=== PATIENT | female | born 1990 | race Caucasian/White ===

== ENCOUNTER 2018-10-12 01:25 | Inpatient (IN) | payer MEDICAID ==
[2018-10-12] MEDS ORDERED: MISOPROSTOL 200 MCG TAB PR ×2 (02:30→15:00)
[2018-10-12] MEDS ORDERED: CARBOPROST 250 MCG INJ IM ×2 (02:30→15:00)
[2018-10-12] MEDS ORDERED: OXYTOCIN 30 UNITS/LR 500 ML IV ×3 (02:30→15:00)
[2018-10-12] MEDS ORDERED: IBUPROFEN 600 MG TAB PO (02:30)
[2018-10-12] MEDS ORDERED: LIDOCAINE 1% (MPF) 30 ML INJ INJ (02:30)
[2018-10-12] MEDS ORDERED: METHYLERGONOVINE 0.2 MG INJ IM ×2 (02:30→15:00)
[2018-10-12] MEDS: LACTATED RINGER'S 1,000 ML IV ×3 (03:02→08:44)
[2018-10-12 03:14] LABS: ADD MAN DIFF? NO
[2018-10-12 03:16] LABS: ABNORMAL IP MESSAGE 1; BASOPHILS % 0.2 % (0.0-2.0); EOSINOPHILS # 0.1 10^3/ul (0.0-0.5); EOSINOPHILS % 0.7 % (0.0-7.0); HEMOGLOBIN 13.9 g/dl (12.0-16.0); LYMPHOCYTES # 2.1 10^3/ul (0.8-2.9); LYMPHOCYTES % 20.9 % (15.0-51.0); MEAN CORPUSCULAR HEMOGLOBIN 30.1 pg (29.0-33.0); MEAN CORPUSCULAR HGB CONC 33.9 g/dl (32.0-37.0); MEAN CORPUSCULAR VOLUME 88.7 fl (82.0-101.0); MEAN PLATELET VOLUME 13.7 fl (7.4-10.4); MONOCYTE # 0.7 10^3/ul (0.3-0.9); MONOCYTES % 6.6 % (0.0-11.0); NEUTROPHIL # 7.1 10^3/ul (1.6-7.5); NEUTROPHILS % 71.1 % (39.0-77.0); PLATELET COUNT 129 10^3/UL (140-415); RED BLOOD COUNT 4.62 10^6/ul (4.20-5.40); RED CELL DISTRIBUTION WIDTH 14.1 % (11.5-14.5)
[2018-10-12 03:22] LABS: POSITIVE DIFF @See below
[2018-10-12 03:36] LABS: INR 0.84; PROTIME 11.6 Sec (11.9-14.9); PT RATIO 0.9
[2018-10-12 03:37] LABS: PARTIAL THROMBOPLASTIN TIME 27.7 Sec (23.0-35.0)
[2018-10-12] MEDS: OXYTOCIN 30 UNITS/LR 500 ML IV ×3 (03:52→19:00)
[2018-10-12 04:08] LABS: HEPATITIS B SURFACE ANTIGEN NEGATIVE (NEGATIVE)
[2018-10-12] MEDS: BUTORPHANOL 2 MG INJ IV (05:43)
[2018-10-12] MEDS ORDERED: FENTAnyl 2MCG/ML-ROPIV 0.2% 100 ML (08:08)
[2018-10-12] MEDS ORDERED: FENTAnyl 2MCG/ML-ROPIV 0.2% 100 ML BAG EPI (09:00)
[2018-10-12] MEDS ORDERED: ONDANSETRON 4 MG INJ IV (09:00)
[2018-10-12] MEDS ORDERED: DIPHENHYDRAMINE 50 MG INJ IV (09:00)
[2018-10-12] MEDS ORDERED: NALOXONE (0.4 MG/ML) INJ IV (09:00)
[2018-10-12] MEDS ORDERED: SENNA/DOCUSATE NA (8.6MG/50MG) TAB PO (15:00)
[2018-10-12] MEDS ORDERED: ZOLPIDEM 5 MG TAB PO (15:00)
[2018-10-12] MEDS ORDERED: NACL 0.9% 3 ML SYG IV (15:00)
[2018-10-12] MEDS ORDERED: OXYCODONE/ASPIRIN (4.88/325) TAB PO (15:00)
[2018-10-12] MEDS: LANOLIN 7 GM TUBE TOP (15:41)
[2018-10-12] MEDS: IBUPROFEN 600 MG TAB PO (17:47)
[2018-10-12 20:51] LABS: RAPID PLASMA REAGIN NONREACTIVE (NR)
[2018-10-12] MEDS: WITCH HAZEL/GLYCERIN PAD PR (21:25)
[2018-10-12] MEDS: SENNA/DOCUSATE NA (8.6MG/50MG) TAB PO (21:25)
[2018-10-13] MEDS: IBUPROFEN 600 MG TAB PO ×5 (00:11→23:48)
[2018-10-13 08:07] LABS: ADD MAN DIFF? NO
[2018-10-13 08:09] LABS: ABNORMAL IP MESSAGE 1; BASOPHILS % 0.3 % (0.0-2.0); EOSINOPHILS # 0.1 10^3/ul (0.0-0.5); EOSINOPHILS % 1.3 % (0.0-7.0); HEMATOCRIT 41.8 % (37.0-47.0); HEMOGLOBIN 13.7 g/dl (12.0-16.0); LYMPHOCYTES # 2.4 10^3/ul (0.8-2.9); LYMPHOCYTES % 26.6 % (15.0-51.0); MEAN CORPUSCULAR HEMOGLOBIN 29.7 pg (29.0-33.0); MEAN CORPUSCULAR HGB CONC 32.8 g/dl (32.0-37.0); MEAN CORPUSCULAR VOLUME 90.7 fl (82.0-101.0); MONOCYTE # 0.6 10^3/ul (0.3-0.9); MONOCYTES % 6.8 % (0.0-11.0); NEUTROPHIL # 5.8 10^3/ul (1.6-7.5); NEUTROPHILS % 64.6 % (39.0-77.0); PLATELET COUNT 119 10^3/UL (140-415); RED BLOOD COUNT 4.61 10^6/ul (4.20-5.40); RED CELL DISTRIBUTION WIDTH 14.7 % (11.5-14.5)
[2018-10-13 08:11] LABS: POSITIVE DIFF @See below
[2018-10-13] MEDS: SENNA/DOCUSATE NA (8.6MG/50MG) TAB PO ×2 (08:48→21:31)
[2018-10-13 10:46] LABS: RUBELLA ANTIBODY - IGM <20.00 AU/mL
[2018-10-13 11:33] LABS: RUBELLA ANTIBODY - IGG 5.92 index
[2018-10-14] MEDS: IBUPROFEN 600 MG TAB PO ×2 (05:33→13:28)
[2018-10-14] MEDS: SENNA/DOCUSATE NA (8.6MG/50MG) TAB PO (09:35)
[2018-10-14] MEDS: DIPHTH/TET/ACEL PERTUSS (ADULT) 0.5 ML VIAL IM* (13:29)
== END 2018-10-14 14:30 | disposition home or self-care (01) | DRG 807 ==
LOC: OBT 01:25 → L-D 01:27 → OBT 02:04 → L-D 02:04 → PP1 14:14
PROVIDERS: Obstetrics & Gynecology
PROC: 10E0XZZ Delivery of Products of Conception, External Approach (ICD-10-PCS; principal; 2018-10-12)
DX: O77.0 Labor and delivery complicated by meconium in amniotic fluid (principal); Z37.0 Single live birth; O99.214 Obesity complicating childbirth; E66.9 Obesity, unspecified; Z3A.40 40 weeks gestation of pregnancy; Z23 Encounter for immunization
CPT/HCPCS: 62319; 76815; 85025; 85610; 85730; 86592; 86762; 86850; 86900; 86901; 87340; 90686; 90715